=== PATIENT | male | born 1980 | race Caucasian/White ===

== ENCOUNTER 2017-05-13 10:35 | Emergency (ER) | payer MEDICAID ==
[~2017-05-13] VITALS: Ht 190.5 cm; Wt 83.9 kg
[2017-05-13 10:41] VITALS: BP 141/84
== END 2017-05-13 11:28 | disposition home or self-care (01) ==
LOC: ED 11:24
DX: S70.11XA Contusion of right thigh, initial encounter (principal); X58.XXXA Exposure to other specified factors, initial encounter; Y93.89 Activity, other specified; Y92.89 Other specified places as the place of occurrence of the external cause; Y99.8 Other external cause status
CPT/HCPCS: 99282